=== PATIENT | female | born 1995 | race Caucasian/White ===

== ENCOUNTER 2023-08-01 13:03 | Emergency (ER) | payer MEDICAID, OTHER ==
[~2023-08-01] VITALS: Ht 165.1 cm; Wt 106.0 kg
[2023-08-01 13:17] VITALS: O2SAT 100
[2023-08-01] MEDS: ACETAMINOPHEN 500MG TABLET PO ONE (14:18)
[2023-08-01] MEDS: IBUPROFEN 400MG TABLET PO ONE (14:18)
[2023-08-01] MEDS: SODIUM CHLORIDE 0.9% 1,000 ML IV ONE (15:12)
[2023-08-01 15:21] LABS: BASOPHILS % 0.3 % (0.0-2.0); EOSINOPHILS % 0.2 % (0.0-5.0); HEMATOCRIT. 39.8 % (36.0-48.0); HEMOGLOBIN. 13.1 g/dL (12.0-16.0); LYMPHOCYTES % 12.8 % (20.0-50.0); MEAN CORPUSCULAR HEMOGLOBIN 29.1 pg (28.0-32.0); MEAN CORPUSCULAR HGB CONC 32.9 g/dL (31.0-37.0); MEAN CORPUSCULAR VOLUME 88.3 fL (81.0-99.0); MEAN PLATELET VOLUME 10.8 fl (7.4-10.4); MONOCYTES % 13.1 % (2.0-8.0); NEUTROPHILS % 73.6 % (40.0-76.0); PLATELET 180 x1000/uL (130-400); RED BLOOD CELL COUNT 4.51 mill/uL (4.2-5.4); RED CELL DISTRIBUTION WIDTH 13.2 % (11.6-14.6); WHITE BLOOD COUNT 6.7 x1000/uL (4.5-11.0)
[2023-08-01 15:39] LABS: ALANINE AMINOTRANSFERASE 34 IU/L (10-49); ALBUMIN 4.9 g/dL (3.2-4.8); ASPARTATE AMINOTRANSFERASE 25 IU/L (<34); BILIRUBIN TOTAL 0.9 mg/dL (0.1-1.0); CALCIUM 9.3 mg/dL (8.7-10.4); CARBON DIOXIDE 21 mEq/L (21-32); CHLORIDE 106 mEq/L (98-107); CREATININE 0.6 mg/dL (0.6-1.0); GLUCOSE 101 mg/dL (70-105); POTASSIUM 3.5 mEq/L (3.5-5.1); PROTEIN TOTAL 8.2 g/dL (6.0-8.3); SODIUM 134 mEq/L (136-145); UREA NITROGEN BLOOD 8 mg/dL (9-23)
[2023-08-01 16:09] LABS: TROPONIN I HIGH SENSITIVITY < 4 ng/L (3.0-34)
[2023-08-01] MEDS ORDERED: IBUP-2029 MT (16:21)
[2023-08-01] MEDS ORDERED: GUAI600T26 MT (16:21)
[2023-08-01 16:29] VITALS: BP 115/62; PULSE 95; RESP 16; TEMP 98.5
== END 2023-08-01 16:39 | disposition home or self-care (01) ==
LOC: ER 13:03
DX: B34.9 Viral infection, unspecified (principal); J11.1 Influenza due to unidentified influenza virus with other respiratory manifestations; Z90.49 Acquired absence of other specified parts of digestive tract; Z20.822 Contact with and (suspected) exposure to COVID-19
CPT/HCPCS: 80053; 81025; 85025; 85379; 87420; 84484; 87804 ×2; 36415; 71045; 93005; 96360; 99285; 87426; Z7610